=== PATIENT | male | born 1950 | race Caucasian/White ===

== ENCOUNTER → 2022-11-29 | Outpatient (CLI) | payer MEDICARE ==
--- NOTE | 2022-11-29 17:45 | Diagnostic Imaging Report ---
INDICATION: Osteoarthritis. COMPARISON: None. FINDINGS: Three radiographic views of the left knee were obtained and demonstrate advanced osteoarthritic changes. This consists of tricompartmental joint space narrowing with prominent osteophyte formations, greatest involving the medial tibiofemoral and patellar trochlear compartments. There is also mild lateral subluxation of the tibia in respect to the femur. Small suprapatellar joint effusion is noted. Osseous structures are intact. Joint spaces are otherwise maintained. No unexpected foreign bodies are seen. IMPRESSION: 1. Advanced osteoarthritic changes of the left knee. No acute fracture or dislocation. Dictated by: Dictated on workstation # [id number]
== END ==
LOC: RAD FS 13:32
PROVIDERS: ATTEND Nurse Practitioner
DX: M17.0 Bilateral primary osteoarthritis of knee (principal)
CPT/HCPCS: 73562

== ENCOUNTER 2023-08-31 07:29 | Outpatient (CLI) | payer MEDICARE ==
[~2023-08-31] VITALS: Ht 170.2 cm; Wt 70.0 kg
[2023-08-31] MEDS ORDERED: ASPI-999 PO (11:35)
[2023-08-31] MEDS ORDERED: ACET500P24 PO (11:35)
[2023-08-31] MEDS ORDERED: ATOR40TA70 PO (11:35)
[2023-08-31] MEDS ORDERED: LISI5TAB20 PO (11:35)
[2023-08-31] MEDS ORDERED: CELE400C PO (11:35)
[2023-08-31] MEDS ORDERED: GABA300S3 PO (11:35)
[2023-08-31 11:40] VITALS: BP 116/78
[2023-08-31 11:53] LABS: BILIRUBIN,URINE NEGATIVE (NEGATIVE); CLARITY,URINE CLEAR; COLOR,URINE YELLOW; GLUCOSE, URINE (UA) NEGATIVE (NEGATIVE); KETONES,URINE TRACE (NEGATIVE); NITRITE,URINE NEGATIVE (NEGATIVE); PROTEIN,URINE NEGATIVE (NEGATIVE)
[2023-08-31 11:54] LABS: BACTERIA,URINE NEGATIVE /HPF; LEUKOCYTE ESTERASE ,URINE NEGATIVE (NEGATIVE); RBC,URINE RARE /HPF
--- NOTE | 2023-08-31 11:57 | Physical Therapy Pre-Op Eval ---
PT Pre-Surgical Assessment Type of Surgery Type of Surgery: Prior Level of Function Current Living Status: Spouse Locomotion (Upon Admit): Independent Distance: Unlimited PLOF DME: Electric Scooter, Front Wheeled Walker Subjective Subjective Patient rates left knee pain at 3/10 currently. Reports he lives in a home with a basement, but has an elevator to get him down there if needed. Home: Multilevel Current Living Status: Spouse Entry Into Home: Level Entry Steps Into Home: 0 ROM ROM: WFL, except focal deficit Strength Strength: WFL Transfers Transfers (B, C, W/C) (FIM): 6 Gait Gait (FIM): 6 Gait Distance (FIM): 6 Distance: 50' Gait Assistive Device: FWW Right Lower Extremity: Right Full Weight Bearing Left Lower Extremity: Left Full Weight Bearing Treatment Rendered Treatment: Patient instructed in assistive device, supported ambulation. Patient instructed in and given written program of ROM and strengthening exercises to be preformed post-op. Patient instructed in movement precautions where applicable. Patient demonstrates understandings of post-operative therapy protocol including gait pattern and exercise program. Pre-operative instruction completed; await physical therapy orders after surgery. Treatment Goal Met: Yes Assessment Goals Acheived: I Ambulation w/ FWW, Understands P-op Precaut, I Post-op Exercises Charges/GCodes Time In: 1125 Time Out: 1135 Total Billed Treatment Time: 10 Total Billed Treatment Visit, DAXA SOLIS PT Aug 31, 2023 11:56
[2023-08-31 12:57] LABS: BASOPHILS # (AUTO) 0.1 10^3/uL (0.0-0.1); BASOPHILS % (AUTO) 1 % (0-10); EOSINOPHILS # (AUTO) 0.1 10^3/uL (0.0-0.3); EOSINOPHILS % (AUTO) 2 % (0-10); HEMATOCRIT 46 % (40-54); HEMOGLOBIN 14.9 g/dL (13.3-17.7); LYMPHOCYTES # (AUTO) 1.1 10^3/uL (1.0-4.0); LYMPHOCYTES % (AUTO) 18 % (12-44); MEAN CORPUSCULAR HEMOGLOBIN 31 pg (25-34); MEAN CORPUSCULAR HGB CONC 33 g/dL (32-36); MEAN CORPUSCULAR VOLUME 95 fL (80-99); MEAN PLATELET VOLUME 9.8 fL (9.0-12.2); MONOCYTES # (AUTO) 0.6 10^3/uL (0.0-1.0); MONOCYTES % (AUTO) 10 % (0-12); NEUTROPHILS # (AUTO) 4.2 10^3/uL (1.8-7.8); NEUTROPHILS % (AUTO) 69 % (42-75); PLATELET COUNT 281 10^3/uL (130-400)
[2023-08-31 13:14] LABS: ALBUMIN 4.2 GM/DL (3.2-4.5); BILIRUBIN,TOTAL 0.4 MG/DL (0.1-1.0); CALCIUM 8.9 MG/DL (8.5-10.1); CREATININE SERUM 0.81 MG/DL (0.60-1.30); POTASSIUM 4.1 MMOL/L (3.6-5.0); TOTAL PROTEIN 6.4 GM/DL (6.4-8.2)
--- NOTE | 2023-08-31 14:14 | Diagnostic Imaging Report ---
INDICATION: Preoperative evaluation prior to knee surgery. EXAMINATION: Two-view chest, 08/31/2023. FINDINGS: The cardiomediastinal silhouette is unremarkable. The pulmonary vasculature is within normal limits. The lungs and pleural spaces are clear. The apices are incompletely included. IMPRESSION: No evidence of an acute cardiopulmonary process. Dictated by: Dictated on workstation # [id number]
[2023-08-31 14:18] LABS: PROTHROMBIN TIME PATIENT 13.6 SEC (12.2-14.7)
== END 2023-08-31 15:47 ==
LOC: PREOP 07:29
PROVIDERS: ATTEND Orthopaedic Surgery
DX: Z01.818 Encounter for other preprocedural examination (principal); M17.12 Unilateral primary osteoarthritis, left knee
CPT/HCPCS: 36415; 71046; 80053; 81000; 85025; 85610; 86850; 86900; 86901; 87081; 93005

== ENCOUNTER 2023-09-07 05:52 | Inpatient (IN) | payer MEDICARE ==
--- NOTE | 2023-08-30 08:08 | HISTORY AND PHYSICAL ---
DATE OF SERVICE: 09/07/2023 ADMISSION HISTORY AND PHYSICAL This will be for inpatient admission on 09/07/2023 for left total knee arthroplasty. HISTORY OF PRESENT ILLNESS: The patient is a 72-year-old active gentleman with progressively worsening left knee pain. He has undergone treatment with injections for years. He reports pain with activities. He reports injections are no longer helping. Because of this, he elected to proceed with total knee arthroplasty. Radiographs reveal severe tricompartmental osteoarthritis. REVIEW OF SYSTEMS: No chest pain, no shortness of breath, no dysuria. PAST MEDICAL HISTORY: Nephrolithiasis, herniorrhaphy, allergic rhinitis. PAST SURGICAL HISTORY: Herniorrhaphy, kidney stone removal, bilateral knee arthroscopy. FAMILY HISTORY: Noncontributory. PRIMARY CARE PROVIDER: Dr. Calderón. MEDICATIONS: Clopidogrel, lisinopril, aspirin, Lipitor. ALLERGIES: No known drug allergies. SOCIAL HISTORY: The patient smokes 1 pack per day. Denies alcohol use. PHYSICAL EXAMINATION: GENERAL: The patient is well-developed, well-nourished, in no acute distress. HEENT: Normocephalic, atraumatic. Pupils equal, round, reactive. Oropharynx is clear. NECK: Supple. No lymphadenopathy. LUNGS: Clear to auscultation bilaterally. HEART: Regular rate and rhythm. ABDOMEN: Soft, nontender, nondistended. EXTREMITIES: The left knee demonstrates varus alignment. He has marked prominence medially with patellofemoral crepitus and pain with patellar loading. Range of motion 0/3/115. There is no erythema or warmth. IMPRESSION: Severe left knee osteoarthritis, unresponsive to conservative measures. PLAN: Left total knee arthroplasty. The risks, benefits, options, ramifications and recovery were discussed at length with the patient. He understands and wishes to proceed. Job ID: [id number] DocumentID: [id number] Dictated Date: 08/22/2023 12:03:14 [employer] Date: 08/22/2023 15:47:00 Dictated By: REY VARELA MD
[2023-09-07] VITALS (14 sets, daily range): BP systolic 108–168; BP diastolic 62–101
[~2023-09-07] VITALS: Ht 170.2 cm; Wt 70.0 kg
[~2023-09-07 05:52] MED LIST: ACET500P24 PO; ASPI-999 PO; ATOR40TA70 PO; CELE400C PO; GABA300S3 PO; LISI5TAB20 PO
--- OUTSIDE RECORDS SUMMARY | 2023-09-07 05:55 | XMS REPORT | Encounter Summary ---
Author Author [facility] Organization [facility] Address Unknown Phone Unavailable Care Team Providers Care Gate Person Name Role Phone Jamie Calderón MD PCP [phone] Reason for Referral * Consultation (Routine) - Authorized Specialty Diagnoses / Procedures Referred By Contac t Referred To Contact Neurology Diagnoses Transient alteration of awareness Bandar Sagastume MD [address] [place] [address] [facility] [address] [address] Referral ID Status Reason Start Date Expiration Date Visits Requested Visits Authorized [id number] Authorized Specialty Services Required 3 02/11/2024 1 1 Reason for Visit * Reason Comments transient global amnesia Medical researc h on TIA Encounter Details Date Type Department Care Team Description 08/12/2023 11:00 AM CDT Telemedicine [facility] [address] [place] [address] Bandar Sagastume MD [address] [place] [address] Transient alteration of awareness (Primary Dx) Social History Tobacco Use Types Packs/Day Years Used Date Smoking Tobacco: Every Day Pipe Smokeless Tobacco: Never Tobacco Cessation:Ready to Q uit: No; Counseling Given: Not Answered Alcohol Use Standard Drinks/Week Comments Not Currently 0 (1 standard drink = 0.6 oz pur e alcohol) rare PHQ-2 Answer Date Recorded Part 1 Score: 0 09/03/2021 [facility] Transportation Needs Answer Date R ecorded Transportation Needs Not on file In the next 24 hours or afte r discharge, are you in a situation where housing, food, or transportation is a concern, or does the patient demonstrate the inability to care for self that could result in imminent harm No 09/03 [facility] Food Insecurity Answer Date Record ed Food Insecurity Not on file In the next 24 hours or afte r discharge, are you in a situation where housing, food, or transportation is a concern, or does the patient demonstrate the inability to care for self that could result in imminent harm No 09/03 [facility] Housing Answer Date Recorded Housing Insecurity Not on file In the next 24 hours or afte r discharge, are you in a situation where housing, food, or transportation is a concern, or does the patient demonstrate the inability to care for self that could result in imminent harm No 09/03 Sex and Gender Information Value Date Recorded Sex Assigned at Not on file Gender Identity Not on file Sexual Orientation Not on file documented as of this encounter Last Filed Vital Signs Vital Sign Reading Time Taken Comments Blood Pressure 115/74 08/12/2023 11:01 AM CDT Pulse 89 08/12/2023 11:01 AM CDT Temperature 36.7 C (98 F) 08/12/2023 11:01 AM CDT Respiratory Rate 18 08/12/2023 11:01 AM CDT Oxygen Saturation 98% 08/12/2023 11:04 AM CDT Inhaled Oxygen Concentration - - Weight 68.2 kg (150 lb 6.4 oz) 08/12/2023 11:01 AM CDT Height 170.2 cm (5' 7") 08/12/2023 11:01 AM CDT Body Mass Index 23.56 08/12/2023 11:01 AM CDT documented in this encounter Patient Instructions * Patient Instructions* Hernan Magdaleno RN - 08/12/2023 11:00 AM CDT Referral has been placed to the Ep[facility]psy [facility] in [place]. [employer] will call to make an appointment Avoid sleep deprivation, fasting and control pain to mitigate spells Call for follow up once completed with Epilepsy Center Call [facility] at [phone] with any questions or concerns documented in this encounter Progress Notes * Bandar Sagastume MD - 08/12/2023 11:00 AM CDT NEUROLOGY CONSULTATION The patient Jama Downing, located at [facility] was seen, examined, and evaluated via [facility] audio/video equipment. The provider documenting this encounter was Bandar Sagastume MD who performed this service while located at home. Consent for the telemedicine was obtained from the patient? Yes Patient Name: Jama Downing : 1950 PCP: Jamie Calderón MD Date of service: 08/12/2023 CHIEF COMPLAINT HISTORY OF PRESENT ILLNESS follow up of episodes of altered awareness. Jama Downing is a 72 y.o., right-handed male who comes in for neurologic follow-up regarding episodes of altered behavior. Please see my last note of March 25 for details. 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 Please see March 25 note for details of these events. The patient was hospitalized with the most recent episode and had extensive neurologic work-up as outlined, including a baseline EEG which was negative. Plan was to continue with antiplatelet agents and Lipitor and to follow-up as needed. Since I saw him last, he followed up with vascular surgery who noted that his carotid arteries looked good following carotid endarterectomy in 2019, however recommended continuing dual antiplatelet therapy with both aspirin and Plavix. The patient has done this and has been compliant with all his medications. He reports a third episode occurring about 1 month ago of altered awareness. 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 Patient does not remember this at all. When he left the restaurant few minutes later, he came back in wondering who had moved to his truck. As it turns out, he parked his truckin the unusual location, different than where he usually valdes it, and did not remember this at all. He had no difficulty getting to work, negotiating the several turns without problems, had no accompanying symptoms of headache, numbness, tingling, visual changes, dizziness, lightheadedness, weakness, or other neurologic symptoms. No associated chest pain, nausea, shortness of breath. He has had no recurrent episodes since. He was accompanied to clinic by his ACTIVE PROBLEMS: Patient Active Problem List Diagnosis SNOMED CT(R) Carotid stenosis, left LEFT CAROTID ARTERY STENOSIS Hearing loss HEARING LOSS Current every day smoker SMOKES TOBACCO DAILY Acute post-operative pain ACUTE POSTOPERATIVE PAIN Hypotension LOW BLOOD PRESSURE Transient alteration of awareness TRANSIENT ALTERATION OF AWARENESS HISTORIES: I have reviewed the patient's medical history in detail; there are no changes to the history as noted in the electronic medical record. CURRENT MEDICATIONS: acetaminophen (TYLENOL) 325 MG tablet Take 2 tablets (650 mg total) by mouth every 6 (six) hours asneeded. aspirin 81 MG EC tablet Take 1 tablet (81 mg total) by mouth daily. atorvastatin (LIPITOR) 40 MG tablet Take 1 tablet (40 mg total) by mouth nightly. clopidogreL (PLAVIX) 75 mg tablet hydrOXYzine (ATARAX) 25 MG tablet Take 1 tablet (25 mg total) by mouth 3 (three) times a day as needed for itching. lisinopriL (PRINIVIL,ZESTRIL) 5 MG tablet Take 1 tablet (5 mg total) by mouth daily. No current facility-administered medications for this visit. ALLERGIES: No Known Allergies PHYSICAL EXAM: Limited by the constraints of telemedicine. Vitals: 08/12/23 1101 08/12/23 1104 BP: 115/74 BP Location: Right arm Patient position: Sitting Cuff size: Medium Pulse: 89 Resp: 18 Temp: 36.7 C (98 F) TempSrc: Temporal SpO2: 98% Weight: 68.2 kg (150 lb 6.4 oz) Height: 1.702 m (5' 7") Body mass index is 23.56 kg/m. Physical Exam Well-developed well-nourished man in no acute distress. Neurologic Exam He is alert. Affect appropriate. Speech fluent without dysarthria. He is attentive. Gaze is conjugate. No facial asymmetry or weakness. Hearing grossly intact to conversation over the WebCam. Motor exam shows him to move all 4 extremities without apparent asymmetry. His gait was normal withno gross ataxia, shuffling, or festination. No obvious ataxic movements of the limbs. IMPRESSION Mr. Downing is a 72 y.o. right-handed male with now his third recurrent episode in 3 years of briefalteration of behavior. Differential diagnosis would be transient global amnesia, which is not commonly recurrent, versus a partial seizure disorder. PLAN: Discussed in detail with the patient and his . He is agreeable to proceeding further with work-up. He has had negative MRI as well as stroke work-up including MRI of the brain and CT angiogram of the head and neck as documented in previous notes. He is on dual antiplatelet treatment and statin therapy. Baseline EEG was negative, and therefore we will pursue further EEG testing, such as 72-hour ambulatory EEG. He will be referred to the epilepsy center for the consideration. Return for follow-up after he goes to the epilepsy center. Diagnoses and all orders for this visit: Transient alteration of awareness - Amb Referral To Neurology; Future FOLLOW UP: After evaluation at [facility]. This encounter took 40 minutes including face to face, preparation, and documentation time. documented in this encounter Plan of Treatment Scheduled Referrals Name Type Priority Associated Diagnoses Order Schedule Amb Referral To Neurology Outpatient Referral Routine Transient alteration of awareness 1 Occurrences starting 08/12/2023 until 02/11/2024 documented as of this encounter Visit Diagnoses Diagnosis Transient alteration of awareness- Primary documented in this encounter Care Teams Gate Person Relationship Specialty Start Date End Date Jamie Calderón MD PCP - General Family Medicine 04/24/20 documented as of this encounter
--- OUTSIDE RECORDS SUMMARY | 2023-09-07 05:55 | XMS REPORT | Encounter Summary ---
Author Author [facility] Organization [facility] Address Unknown Phone Unavailable Care Team Providers Care Automatic Drilling Machine Operator Name Role Phone Jamie Calderón MD PCP [phone] Reason for Visit * Reason Comments transient global amnesia Pt states he smith d transient amnesia episode 3/4 weeks ago lasting about 3 hours. Was transferred to [facility] from [facility] ER for further evaluation. Pt states all his tests were negative. Denies any pain. States this was his second episode * Consultation (Routine) - Closed Specialty Diagnoses / Procedures Referred By Contac t Referred To Contact Neurology Diagnoses Transient global amnesia Jamie Calderón MD [address] [place] [address] [facility] Neurology Cl [address] [place] [address] Referral ID Status Reason Start Date Expiration Date V isits Requested Visits Authorized [id number] Closed Specialty Services Required 02/16/2023 08/19/2023 1 1 Encounter Details Date Type Department Care Team Description 03/25/2023 9:30 AM CDT Telemedicine [facility] [address] [place] [address] Jamie Calderón MD [address] [place], [place] [id number] Bandar Sagastume MD [address] [facility] [address] [place] [address] Transient global amnesia Social History Tobacco Use Types Packs/Day Years Used Date Smoking Tobacco: Every Day Pipe Smokeless Tobacco: Never Tobacco Cessation:Ready to Q uit: Yes; Counseling Given: Not Answered Alcohol Use Standard Drinks/Week Comments Not Currently 0 (1 standard drink = 0.6 oz pur e alcohol) rare PHQ-2 Answer Date Recorded Part 1 Score: 0 09/03/2021 [facility] Transportation Needs Answer Date R ecorded Transportation Needs Not on file In the next 24 hours or afte r discharge, are you in a situation where housing, food, or transportation is a concern, or does the patient demonstrate the inability to care for self that could result in imminent harm No 09/03 [facility] Food Insecurity Answer Date Record ed Food Insecurity Not on file In the next 24 hours or afte r discharge, are you in a situation where housing, food, or transportation is a concern, or does the patient demonstrate the inability to care for self that could result in imminent harm No 09/03 [facility] Housing Answer Date Recorded Housing Insecurity [...] Sign Reading Time Taken Comments Blood Pressure 120/67 03/25/2023 9:38 AM CDT Pulse 73 03/25/2023 9:38 AM CDT Temperature 36 C (96.8 F) 03/25/2023 9:38 AM CDT Respiratory Rate 20 03/25/2023 9:38 AM CDT Oxygen Saturation 99% 03/25/2023 9:42 AM CDT Inhaled Oxygen Concentration - - Weight 68 kg (150 lb) 03/25/2023 9:38 AM CDT Height 170.2 cm (5' 7") 03/25/2023 9:38 AM CDT Body Mass Index 23.49 03/25/2023 9:38 AM CDT documented in this encounter Patient Instructions * Patient Instructions* Hernan Magdaleno RN - 03/25/2023 9:30 AM CDT Please research transient global amnesia Follow as needed Call with any questions or concerns: [phone] documented in this encounter Progress Notes * Bandar Sagastume MD - 03/25/2023 9:30 AM CDT NEUROLOGY CONSULTATION The patient Jama Downing, located at [facility] was seen, examined, and evaluated via [employer] audio/video equipment. The provider documenting this encounter was Bandar Sagastume MD who performed this service while located at home. Consent for the telemedicine was obtained from the patient? Yes Patient Name: Jama Downing : 1950 PCP: Jamie Calderón MD Date of service: 03/25/2023 CHIEF COMPLAINT transient global amnesia (Pt states he had transient amnesia episode 3/4 weeks ago lasting about 3 hours. Was transferred to [facility] from [facility] ER for further evaluation. Pt states all his tests were negative. Denies any pain. States this was his second episode) HISTORY OF PRESENT ILLNESS new evaluation and treatment of transient global amnesia. Jama Downing is a 72 y.o., right-handed male referred for further evaluation of recurrentepisode of transient global amnesia. Electronic medical record was reviewed as well as records supplied by his PCP, Dr. Calderón. Patient's first episode occurred in 2019. He had an episode where he lost track of about 6 hours of time. He remembers waking up, feeling fine, and other than occasional very sketchy brief memories, remembers nothing more of the ensuing 6 hours. Patient's told him that he kept repeating himself on 6 several occasions asking "where am I, what I doing"? Otherwise he apparently was acting normally, does not remember having any problems with headache, weakness, numbness, tingling, visual changes, chest pain, palpitations, or other neurologic or systemic symptoms. Apparently his speech was not slurred. He went on to work and was able to do his job, although coworker subsequently told him that he was doing the same activity somewhat repetitively. He was able to drive to work withoutproblem, and drive home, and he then spontaneously "came to" with no further memory issues. He hadno idea what transpired the previous 6 hours. He was brought to a local hospital where he was evaluated with neuroimaging and noted to have 70% blockage of his left internal carotid artery. This then led to uncomplicated left carotid endarterectomy. He had no further problems up until several weeks ago. This episode was very similar to the first but lasted about 3 hours. He was feeling fine,got out of the vehicle that he was driving with his on his way to the store, because a fan belt broke. That is all that he remembers up until about 3 hours later when he was in the hospital. His told him that he repeatedly walked back to the car from under the roman stating "do not freakout I am going to be okay". Again he had no focal neurologic symptoms or headache. Extensive neurologic work-up was done at [facility], including MRI of the brain, EEG, CT angiogram of the head and neck, and routine blood work. This was all unremarkable. Plavix was added to his low-dose aspirin as well as Lipitor and he was discharged home. He has not had any recurrent episodes. Patient gives no history of migraine headaches, strokes, TIA, head injuries, or seizures. He states he believes he was a bit dehydrated perhaps with the most recent episode, and he seemed to get better quickly when he was in the emergency room and given IV fluids. He came to this appointment alone. REVIEW OF SYSTEMS: A 12 system review of systems was negative except for where noted in the history of present illnessabove. ACTIVE PROBLEMS: Patient Active Problem List Diagnosis SNOMED CT(R) Carotid stenosis, left LEFT CAROTID ARTERY STENOSIS Hearing loss HEARING LOSS Current every day smoker SMOKES TOBACCO DAILY Acute post-operative pain ACUTE POSTOPERATIVE PAIN Hypotension LOW BLOOD PRESSURE HISTORIES: I have reviewed the patient's medical history in detail; there are no changes to the history as noted in the electronic medical record. CURRENT MEDICATIONS: acetaminophen (TYLENOL) 325 MG tablet Take 2 tablets (650 mg total) by mouth every 6 (six) hours as needed. aspirin 81 MG EC tablet Take 1 tablet (81 mg total) by mouth daily. atorvastatin (LIPITOR) 40 MG tablet Take 40 mg by mouth nightly. clopidogreL (PLAVIX) 75 mg tablet hydrOXYzine (ATARAX) 25 MG tablet Take 25 mg by mouth 3 (three) times a day as needed for itching. lisinopriL (PRINIVIL,ZESTRIL) 5 MG tablet Take 1 tablet (5 mg total) by mouth daily. No current facility-administered medications for this visit. ALLERGIES: No Known Allergies PHYSICAL EXAM: Limited by the constraints of telemedicine. Vitals: 03/25/23 0938 03/25/23 0942 BP: 120/67 BP Location: Right arm Patient position: Sitting Cuff size: Large Pulse: 73 Resp: 20 Temp: 36 C (96.8 F) TempSrc: Temporal SpO2: 99% Weight: 68 kg (150 lb) Height: 1.702 m (5' 7") Body mass index is 23.49 kg/m. Physical Exam Well-developed well-nourished man in no acute distress. Neurologic Exam Is alert. Affect is good. Speech fluent without dysarthria. He is attentive. Follows commands well. No left-right confusion. No naming difficulty. Left pupil may be slightly larger than the right but both appear to be reactive through the WebCam. Gaze is conjugate without nystagmus. No facial asymmetry or weakness. Hearing grossly intact. Shoulder shrug symmetric. Tongue protrudes in the midline and moves well. Motor exam showed no involuntary movements. No drift or fixation. Fine finger movements are intact. He moves all 4 extremities equally well at least 3/5 proximally and distally. Coordination testing showed intact finger-nose, [id number], and rapid alternating movements. He got up from the chair with arms extended easily. Romberg was negative. Gait appeared to be normal. STUDIES REVIEWED: Extensive studies in hospital unremarkable as noted above-- reports reviewed IMPRESSION Mr. Downing is a 72 y.o. right-handed male with 2 episodes of what appears to be transient global amnesia, first in 2019, second last month. Telemedicine neurologic examination is unremarkable as well as neurologic work-up as outlined above. PLAN: Discussed in detail with the patient. Transient global amnesia is not well understood and etiologyis unclear. There is no evidence at this point that he needs dual antiplatelet therapy, and he does report easy bruisability and is quite active, therefore risk of bleeding complications with the addition of Plavix would seem to outweigh any benefits. Recommend he just continue low-dose aspirin. Although not very likely, there is a small possibility that his episodes could be partial seizures. He is not interested in pursuing this further unless he has recurrent episodes. If so, then wouldrecommend most likely prolonged EEG after sleep deprivation or ambulatory EEG. In the meantime, hestates that he is a bit of a workaholic, and will learn to relax a bit more and not work as hard. He will also keep well-hydrated, because he thinks this may have contributed to his episodes. I will see him again as needed in follow-up. Diagnoses and all orders for this visit: Transient global amnesia - Amb Referral To Neurology Other orders - clopidogreL (PLAVIX) 75 mg tablet FOLLOW UP: Return if symptoms worsen or fail to improve. This encounter took 65 minutes including face to face, preparation, and documentation time. This time includes reviewing outside records. documented in this encounter Plan of Treatment Not on file documented as of this encounter Visit Diagnoses Diagnosis Transient global amnesia documented in this encounter Care Teams Automatic Drilling Machine Operator Relationship Specialty Start Date End Date Jamie Calderón MD PCP - General Family Medicine 04/24/20 documented as of this encounter
--- OUTSIDE RECORDS SUMMARY | 2023-09-07 05:55 | XMS REPORT | Encounter Summary ---
Author Author [facility] Organization [facility] Address Unknown Phone Unavailable Care Team Providers Care Silk Examiner Name Role Phone Jamie Calderón MD PCP [phone] Reason for Visit * Reason Comments 1 yr carotid stenosis f/u; knee surgery clearance Encounter Details Date Type Department Care Team Description 08/01/2023 2:10 PM CDT - 08/01/2023 11:59 PM CDT Hospital Encounter [facility] [address], [address] [place] [address] Sharon Lunsford, SMALL LOT OPERATOR [address] [facility] [address] [place], [place] [id number] Carotid stenosis, left (Primary Dx); Current every day smoker Discharge Disposition: Home or Self Care Social History Tobacco Use Types Packs/Day Years Used Date Smoking Tobacco: Every Day Pipe Smokeless Tobacco: Never Tobacco Cessation:Ready to Q uit: Not Asked; Counseling Given: Not Answered Alcohol Use Standard Drinks/Week Comments Not Currently 0 (1 standard drink = 0.6 oz pur e alcohol) rare PHQ-2 Answer Date Recorded Part 1 Score: 0 09/03/2021 [facility] Transportation Needs Answer Date R ecorded Transportation Needs Not on file In the next 24 hours or afte r discharge, are you in a situation where housing, food, or transportation is a concern, or does the patient demonstrate the inability to care for self that could result in imminent harm No 09/03 [facility] Food Insecurity Answer Date Record ed Food Insecurity Not on file In the next 24 hours or afte r discharge, are you in a situation where housing, food, or transportation is a concern, or does the patient demonstrate the inability to care for self that could result in imminent harm No 09/03 [facility] Housing Answer Date Recorded Housing Insecurity [...] Sign Reading Time Taken Comments Blood Pressure 133/87 08/01/2023 2:22 PM CDT Pulse 83 08/01/2023 2:22 PM CDT Temperature 36.6 C (97.9 F) 08/01/2023 2:22 PM C DT Respiratory Rate 16 08/01/2023 2:22 PM CDT Oxygen Saturation 98% 08/01/2023 2:22 PM CDT Inhaled Oxygen Concentration - - Weight 68.9 kg (152 lb) 08/01/2023 2:22 PM CDT Height 170.2 cm (5' 7") 08/01/2023 2:22 PM CDT Body Mass Index 23.81 08/01/2023 2:22 PM CDT documented in this encounter Discharge Instructions * Patient Instructions* Pura Calero RN - 08/01/2023 2:30 PM CDT Sharon Lunsford APRN has reviewed your medical records and performed a thorough physical exam. Your carotid ultrasound looks stable and your numbers remain normal (50% or less). They do not lookmuch different than last year. Please call the Vascular Center at [phone] if you have any questions or concerns. Our Fax number is [phone], for any further paperwork. documented in this encounter Medications at Time of Discharge Medication Sig Dispensed Refills Start Date End Date acetaminophen (TYLENOL) 325 MG tablet Take 2 tablets (650 mg total) by mouth every 6 (six) hours as needed. 0 05/07/2020 aspirin 81 MG EC tablet Take 1 tablet (81 mg total) by mouth daily. 0 atorvastatin (LIPITOR) 40 MG tablet Take 1 tablet (40 mg total) by mouth nightly. 0 09/29/2021 clopidogreL (PLAVIX) 75 mg tablet 0 02/14/2023 hydrOXYzine (ATARAX) 25 MG tablet Take 1 tablet (25 mg total) by mouth 3 (three) times a day as needed for itching. 0 lisinopriL (PRINIVIL,ZESTRIL) 5 MG tablet Take 1 tablet (5 mg total) by mouth daily. 0 documented as of this encounter Progress Notes * Sharon Lunsford, SMALL LOT OPERATOR - 08/01/2023 2:30 PM CDT [facility] Chief complaint(s): 1 yr carotid stenosis f/u; knee surgery clearance HPI: Mr. Downing is a 72 year old male who presents via telephone visit for annual follow up of carotid stenosis with duplex imaging. He was last seen in Vascular clinic on 10/01/2021. He has history of carotid stenosis s/p left CEA by Dr. Chapman with neurosurgery on 05/05/2020. Previous carotid duplex 07/03/2021 showed right ICA PSV 125 cm/sec with ratio of 1.9, left ICA PSV 89 cm/sec with a ICA/CCA ratio of 1.6 and ECA PSV 290 cm/sec. He was doing well at time of last office visit. He had an area of concern, with swelling to the left neck at previous CEA site. He was on ASA and statin. He was not smoking, but he was using nicotine gum to aid with smoking cessation. He had palpable DP pulses bilaterally. Dr. Gonsales recommended ongoing medical management, follow up in one year with repeat imaging. In 2021 he had a carotid duplex that reveals a right distal ICA PSV 103/EDV 44.7 with an ICA/CCA ratio of 1.38 and a left distal ICA PSV 102/EDV 38.4 and an ICA/CCA ratio of 1.59. Since the time of his last visit, he is planning to get a new left knee replacement in [place], [place]. He denies any claudication. He had a carotid duplex done today for clearance and he has a right distal ICA PSV 103/EDV 44.7 with an ICA/CCA ratio of 1.38 and a left a distal ICA PSV 102/EDV 38.4 with an ICA/CCA ratio of 1.59. He remains on aspirin, lipitor and plavix. He denies any shortness of breath or chest pain. He presents today for carotid follow up. Patient Active Problem List Diagnosis SNOMED CT(R) Carotid stenosis, left LEFT CAROTID ARTERY STENOSIS Hearing loss HEARING LOSS Current every day smoker SMOKES TOBACCO DAILY Acute post-operative pain ACUTE POSTOPERATIVE PAIN Hypotension LOW BLOOD PRESSURE Past Medical History: Diagnosis Date Allergic rhinitis Food allergies Carotid artery stenosis HL (hearing loss) bilateral hearing aids Memory loss 02/2020 5-6 hours in February.Ultrasound showed narrowing carotid. Resolved, Urinary calculi Lithotripsy Visual impairment glasses Past Surgical History: Procedure Laterality Date CYSTOSCOPY, WITH URETEROSCOPIC LASER LITHOTRIPSY AND URETERAL CALCULUS EXTRACTION ENDARTERECTOMY, CAROTID, WITH EEG Left 05/05/2020 Procedure: CAROTID ENDARTERECTOMY WITH ELECTROENCEPHALOGRAPHIC MONITORING AND NEUROMONITORING; Surgeon: Adriane Chapman MD; Location: [facility]; Service: Neurosurgery; Laterality: Left; KNEE ARTHROPLASTY Bilateral 2013 ID CYSTO/URETERO/PYELOSCOPY W/LITHOTRIPSY Right 2014 using nephrostomy tube-now removed Final Medications: Current Outpatient Medications Medication Sig Dispense Refill acetaminophen (TYLENOL) 325 MG tablet Take 2 [...] daily. No current facility-administered medications for this encounter. No Known Allergies Family History: Problem Relation Age of Onset Cancer Mother Cancer Father Social History: Social History Tobacco Use Smoking status: Every Day Types: Pipe Smokeless tobacco: Never Substance Use Topics Alcohol use: Not Currently Comment: rare Drug use: Not Currently Review of Systems Constitutional: Negative. Negative for decreased appetite, fever and weight loss. HENT: Negative. Negative for nosebleeds and sore throat. Eyes: Negative. Negative for vision loss in left eye, vision loss in right eye and visual disturbance. Cardiovascular: Negative. Negative for chest pain, claudication, leg swelling, near-syncope and syncope. Respiratory: Negative. Negative for hemoptysis, shortness of breath, sleep disturbances due to breathing and snoring. Endocrine: Negative. Negative for cold intolerance and heat intolerance. Hematologic/Lymphatic: Negative for bleeding problem. Bruises/bleeds easily. Skin: Negative. Negative for color change, poor wound healing, rash, suspicious lesions and unusual hair distribution. Musculoskeletal: Negative. Negative for muscle cramps and muscle weakness. Gastrointestinal: Negative. Negative for abdominal pain and anorexia. Genitourinary: Negative. Negative for decreased libido and pelvic pain. Neurological: Negative. Negative for dizziness, light-headedness, loss of balance, numbness and paresthesias. Psychiatric/Behavioral: Negative. Negative for altered mental status and depression. Allergic/Immunologic: Negative. Negative for HIV exposure and persistent infections. All other systems reviewed and are negative. 08/01/2023 2:22 PM Vitals BP 133/87 BP Location Left arm Pulse 83 Resp 16 Height 5' 7" Weight 152 lb SpO2 98 % BMI: Body mass index is 23.81 kg/m. Physical Exam: Vitals: 08/01/23 1421 08/01/23 1422 BP: 125/85 133/87 Pulse: 72 83 Resp: 16 16 Temp: 36.6 C (97.9 F) 36.6 C (97.9 F) SpO2: 98% 98% Weight: 68.9 kg (152 lb) 68.9 kg (152 lb) Height: 1.702 m (5' 7") 1.702 m (5' 7") General appearance: NAD, Well developed CV: Regular rate and rhythm without murmurs, gallops or rubs Vasc: Left Radial: 2+ Right Radial: 2+ Resp: clear to auscultation, non-labored GI: Soft, +BS, Nontender, Nondistended, No masses Skin: Warm, No jaundice Neuro: Moves all extremities Fpc Follow Up Current Living Status: Home Functional Status: Self Care Current Ambulation: Amb No data recorded Impression and Plan: 1. Carotid stenosis, left 2. Current every day smoker Sharon Bae, saw Jama Downing on 08/01/2023 and have solely contributed to the medical decision making of Jama Downing and recommend the following: Carotid Stenosis - He has done well since his original surgery in [address] Chapman. Bilateral ICA PSV, EDV and ICA/CCA ratio are within normal limits indicating a 0-50% stenosis bilaterally. Hehas an upcoming knee operation which I cleared him for. He remains on Aspirin, plavix and lipitor - if this needs to be held we can do a short course to get him through his knee surgery. From a vascular standpoint he has done well over the past 3 years without any elevated velocities. From a vascular standpoint will verify the length of plavix due to a thrombus on the patch last year. Otherwise anticipate he will be able to see us PRN. ISharon, have reviewed the following pertinent diagnostic testing including: Carotid Duplex. Sharon Bea spent 10 minutes on this encounter reviewing the above diagnostic imaging, 10minutes physical exam and coordination of care and 10 minutes charting the above in the EMR. Treatment goals, progress and next steps, as above, were discussed and mutually agreed upon with the patient/family. documented in this encounter Plan of Treatment Not on file documented as of this encounter Visit Diagnoses Diagnosis Carotid stenosis, left- Primary Occlusion and stenosis of carotid artery without mention of cerebral infarction Current every day smoker documented in this encounter Care Teams Silk Examiner Relationship Specialty Start Date End Date Jamie Calderón MD PCP - General Family Medicine 04/24/20 documented as of this encounter
--- OUTSIDE RECORDS SUMMARY | 2023-09-07 05:55 | XMS REPORT | Encounter Summary ---
Author Author [facility] Organization [facility] Address Unknown Phone Unavailable Care Team Providers Care Brazer Induction Name Role Phone Jamie Calderón MD PCP [phone] Reason for Referral * MRI/CAT/PET Scan (Routine) - Closed Specialty Diagnoses / Procedures Referred By Contac t Referred To Contact Radiology Diagnoses Pneumonia of right middle lobe due to infectious organism Procedures CT Chest w contrast Yohan Castro MD [address] [place] [address] [facility] [address] [place] [address] Referral ID Status Reason Start Date Expiration Date Visits Re quested Visits Authorized [id number] Closed 03/23/2023 03/23/2024 1 1 Encounter Details Date Type Department Care Team Description 03/23/2023 Transcribe Orders [facility] [address] [place] [address] Yohan Castro MD [address] [place] [address] Pneumonia of right middle lobe due to infectious organism (Primary Dx) Social History Tobacco Use Types Packs/Day Years Used Date Smoking Tobacco: Every Day Pipe Smokeless Tobacco: Never Alcohol Use Standard Drinks/Week Comments Not Currently 0 (1 standard drink = 0.6 oz pur e alcohol) rare PHQ-2 Answer Date Recorded Part 1 Score: 0 09/03/2021 [facility] Transportation Needs Answer Date R ecorded Transportation Needs Not on file In the next 24 hours or afte r discharge, are you in a situation where housing, food, or transportation is a concern, or does the patient demonstrate the inability to care for self that could result in imminent harm No 09/03 [facility] Food Insecurity Answer Date Record ed Food Insecurity Not on file In the next 24 hours or afte r discharge, are you in a situation where housing, food, or transportation is a concern, or does the patient demonstrate the inability to care for self that could result in imminent harm No 09/03 [facility] Housing Answer Date Recorded Housing Insecurity Not [...] on file documented as of this encounter Plan of Treatment Not on file documented as of this encounter Procedures Procedure Name Priority Date/Time Associated Diagnosis Comments CT CHEST W CONTRAST Routine 03/24/2023 1:40 PM CDT Pneumonia of right middle lobe due to infectious organism documented in this encounter Results * CT Chest w contrast (03/24/2023 1:40 PM CDT) Anatomical Region Laterality Modality Lung, Chest Computed Tomogra phy 03/24/2023 1:2 5 PM CDT Impressions 03/24/2023 2:47 PM CDT 1. New small amount of right middle lobe consolidation, likely pneumonia. Follow-up noncontrast chest CT could be performed in one to 3 months to ensure resolution. 2. Previous tiny solid nodules are stable, benign appearance. Narrative 03/24/2023 2:47 PM CDT Patient: LAKIA DOWNING Sex#: M #: [id number] [place]#: [id number] Location: [facility] CT Ordering Provider: YOHAN CASTRO Procedure Requested: [id number] CT CHEST W CONTRAST Reason for Exam: eval RML opacity Exam Ordered: 03/23/2023 00 Begin exam date/time: 03/24/2023 1325 Exam Date/Time: 03/24/[address] CHEST W CONTRAST INDICATION: eval RML opacity COMPARISON: 12/06/2022. TECHNIQUE: CT images through the chest after the administration of intravenous contrast. Multiplanar and MIP reformatted images were obtained. All CT scans are performed using dose reduction techniques. FINDINGS: Lungs and Airways: Interval development of small amount of consolidation within the medial right middle lobe (series 2 image 174). Previous tiny solid pulmonary nodules are stable. Retained central airway secretions. Centrilobular emphysema. Pleura: Normal. Heart and Mediastinum: No lymphadenopathy. Normal heart and pericardium. Mild aorta and coronary artery atherosclerotic calcification. Upper Abdomen: No acute findings. Bones and Soft Tissues: Degenerative changes of the spine. Old healed sternal body fracture. Yohan Castro MD IMG CT ORDERABLES documented in this encounter Visit Diagnoses Diagnosis Pneumonia of right middle lobe due to infectious organism- Primary documented in this encounter Care Teams Brazer Induction Relationship Specialty Start Date End Date Jamie Calderón MD PCP - General Family Medicine 04/24/20 documented as of this encounter
--- OUTSIDE RECORDS SUMMARY | 2023-09-07 05:55 | XMS REPORT | Clinical Summary ---
Author Author [facility] Organization [facility] Address Unknown Phone Unavailable Care Team Providers Care Pantry Goods Worker Name Role Phone Jamie Calderón MD PCP [phone] Allergies No known active allergies Medications Medication Sig Dispensed Refills Start Date End Date Status lisinopriL (PRINIVIL,ZESTRIL) 5 MG tablet Take 1 tablet (5 mg total) by mouth daily. 0 Active aspirin 81 MG EC tablet Take 1 tablet (81 mg total) by mouth daily. 0 Active hydrOXYzine (ATARAX) 25 MG tablet Take 1 tablet (25 mg total) by mouth 3 (three) times a day as needed for itching. 0 Active acetaminophen (TYLENOL) 325 MG tablet Take 2 tablets (650 mg total) by mouth every 6 (six) hours as needed. 0 05/07/2020 Active atorvastatin (LIPITOR) 40 MG tablet Take 1 tablet (40 mg total) by mouth nightly. 0 09/29/2021 Active clopidogreL (PLAVIX) 75 mg tablet 0 02/14/2023 Active Active Problems Problem Noted Date Diagnosed Date Transient alteration of awareness 08/12/2023 Hypotension 05/06/2020 Carotid stenosis, left 05/05/2020 Overview: Jul 2020 R ICA 91 R EDV 37 R CCA 101 R ICA/CCA ratio 0.89 L ICA 88 L EDV 38 L CCA 58 L ICA/CCA ratio 1.58 Hearing loss 05/05/2020 Current every day smoker 05/05/2020 Acute post-operative pain 05/05/2020 Encounters Date Type Department Care Team Description 08/12/2023 11:00 AM CDT Telemedicine [facility] [address] [place] [address] Bandar Sagastume MD Transient alteration of awareness (Primary Dx) 08/01/2023 2:10 PM CDT - 08/01/2023 11:59 PM CDT Hospital Encounter [facility] [address], [address] [place] [address] Sharon Lunsford APRN Carotid stenosis, left (Primary Dx); Current every day smoker Discharge Disposition: Home or Self Care 08/01/2023 8:39 AM CDT - 08/01/2023 2:09 PM CDT Hospital Encounter [facility] [address], [address] [place] [address] Sharon Lunsford APRN Carotid stenosis, left Discharge Disposition: Home or Self Care from Last 3 Months Family History Medical History Relation Name Comments Cancer Father Cancer Mother Relation Name Status Comments Father Mother Alive Social History Tobacco Use Types Packs/Day Years Used Date Smoking Tobacco: Every Day Pipe Smokeless Tobacco: Never Tobacco Cessation:Ready to Q uit: No; Counseling Given: Not Answered Alcohol Use Standard Drinks/Week Comments Not Currently 0 (1 standard drink = 0.6 oz pur e alcohol) rare PHQ-2 Answer Date Recorded Part 1 Score: 0 09/03/2021 [facility] Transportation Needs Answer Date R ecorded Transportation Needs Not on file In the next 24 hours or afte r discharge, are you in a situation where housing, food, or transportation is a concern, or does the patient demonstrate the inability to care for self that could result in imminent harm No 09/03 [facility] Food Insecurity Answer Date Record ed Food Insecurity Not on file In the next 24 hours or afte r discharge, are you in a situation where housing, food, or transportation is a concern, or does the patient demonstrate the inability to care for self that could result in imminent harm No 09/03 [facility] Housing Answer Date Recorded Housing Insecurity [...] on file Sexual Orientation Not on file Last Filed Vital Signs Vital Sign Reading [...] Mass Index 23.56 08/12/2023 11:01 AM CDT Plan of Treatment Health Maintenance Due Date Last Done Comments Colonoscopy 1950 Colorectal Cancer Screening 1950 FIT-DNA 1950 Fecal Occult Blood or FIT 1950 Hepatitis C Screen 1950 Sigmoidoscopy 1950 Spirometry # 1950 Td/Tdap# 1950 Tobacco Cessation Counseling # 1950 Zoster Vaccine# (1 of 2) 12/16/2001 Depression Screening PHQ-9 # 12/16/2016 Advance Care Planning Conversation# 10/17/2022 Medicare Annual Wellness 10/17/2022 Social Determinants of Health# 10/17/2022 COVID-19 Vaccine ( season) 2023, 07/08/2021 Influenza Vaccine (#1) 2023 1, 10/24/2019, 08/14/2018 Fall Risk Assessment # 08/12/2024 08/12/2023, 2019 AAA Completed 07/30/2014 Pneumococcal Vaccine: 65+ Years Completed 0, 08/14/2018 Medical Devices Implanted Type Area Chute Worker Device Identifier Shelf Expiration Date Model / Serial / Lot Implant Graft Hemashield Dbl Velour Patch 0.8cm X 7.6cm [id number] - [id number] Implanted:Qty: 1 on 05/05/2020 by Adriane Chapman MD at [facility] Non-Tissue Implant Left: Neck [employer] 11/16/2024 [id number] / [id number] Explanted Type Area Chute Worker Device Identifier Shelf Expiration Date Model / Serial / Lot Implant 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 17-001-18 - [id number] Explanted:Qty : 1 on 05/05/2020 by Adriane Chapman MD at [facility] Non-Tissue Implant Left: Brain ERMELINDA ZAMARRIPA 17-001-18 / / Procedures Procedure Name Priority Date/Time Associated Diagnosis Comments US CAROTID DUPLEX BILAT Routine 08/01/2023 9:16 AM CDT Carotid stenosis, left from Last 3 Months Results * US Carotid Duplex bilat (08/01/2023 9:16 AM CDT) Left Carotid Bulb Psv 86.40 cm/s MCKESSON Left Carotid Bulb Edv 31.70 cm/s MCKESSON SLHS VASC LEFT ICA/CCA DENOMINATOR 64.10 cm/s MCKESSON Left Cca Dist Sys 64.10 cm/s MCKESSON Left Cca Dist Dodson 26.30 cm/s MCKESSON Left Cca Mid Sys 83.20 cm/s MCKESSON Left Cca Mid Dodson 35.40 cm/s MCK[facility]ON Left Cca Prox Sys 85.70 cm/s MCKESSON Left Cca Prox Dodson 34.20 cm/s MCKESSON Left Ica Dist Sys 102.00 cm/s MCKESSON Left Ica Dist Dodson 38.40 cm/s MCKESSON Left Ica Mid Sys 96.60 cm/s MCKESSON Left Ica Mid Dodson 43.40 cm/s MCKESSON Left Ica Prox Sys 82.30 cm/s MCKESSON Left Ica Prox Dodson 31.30 cm/s MCKESSON SLHS VASC LEFT ICA/CCA NUMERATOR 102.00 cm/s MCKESSON Left ECA sys 198.00 cm/s MCKESSON Left ECA EDV 54.90 cm/s MCKESSON Left Upper Art Prox Subclavian Sys Max 172.00 cm/s MCKESSON Left Vertebral Sys 59.30 cm/s MCKESSON Left Vertebral Edv 21.10 cm/s MCKESSON Right Carotid Bulb Psv 63.90 cm/s MCKESSON Right Carotid Bulb Edv 25.90 cm/s MCKESSON SLHS VASC RIGHT ICA/CCA DENOMINATOR 74.70 cm/s MCKESSON Right Cca Dist Sys 74.70 cm/s MCKESSON Right Cca Dist Dodson 20.10 cm/s MCKESSON Right Cca Mid Sys 72.70 cm/s MCKESSON Right Cca Mid Dodson 19.70 cm/s MCKESSON Right Cca Prox Sys 90.70 cm/s MCKESSON Right Cca Prox Dodson 24.20 cm/s MCKESSON Right Ica Dist Sys 103.00 cm/s MCKESSON Right Ica Dist Dodson 44.70 cm/s MCKESSON Right Ica Mid Sys 77.70 cm/s MCKESSON Right Ica Mid Dodson 32.90 cm/s MCKESSON Right Ica Prox Sys 69.40 cm/s MCKESSON Right Ica Prox Dodson 28.50 cm/s MCKESSON SLHS VASC RIGHT ICA/CCA NUMERATOR 103.00 cm/s MCKESSON Right Eca Sys 95.70 cm/s MCKESSON Right Eca Edv 25.50 cm/s MCKESSON Right Upper Art Prox Subclavian Sys Max 116.00 cm/s MCKESSON Right Vertebral Sys 52.10 cm/s MCKESSON Right Vertebral Edv 20.80 cm/s MCKESSON Right Ica/Cca Ratio 1.38 MCKESSON Left Ica/Cca Ratio 1.59 KESSON Anatomical Region Laterality Modality Neck Ultrasound Narrative 08/01/2023 10:18 AM CDT Table formatting from the original result was not included. No evidence of hemodynamically significant stenosis in the right carotid artery. Normal antegrade flow in the right vertebral artery. No evidence of hemodynamically significant stenosis in the left internal carotid artery. Normal antegrade flow in the left vertebral artery. Diagnostic Vascular Criteria Carotid - Internal Carotid Artery Interpretation Diameter Reduction PSV EDV Ratio Flow Character Normal < 125 cm/s - < 2 No plaque present. <50% < 125 cm/s - < 2 Plaque present. Absent to mild spectral broadening. 50-69% 125-230 cm/s < 135 cm/s 2 - 4 Plaque present. Variable spectral broadening. 70-79% > 230 cm/s < 135 cm/s > 4 Plaque present. Marked spectral broadening 80-99% > 230 cm/s >135 cm/s > 4 Plaque present. Marked spectral broadening - - - No flow signal. Occluded Carotid Stent Diameter Reduction PSV Flow Character Patent, no restenosis < 150 cm/s Laminar flow. May see plaque between outside of stent and vessel wall. Patent, 50-69% restenosis 150 - 300 cm/s Turbulent flow. Intimal hyperplasia/plaque visualized within stent in addition to plaque outside of stent. Near occlusion, > 70% restenosis > 300 cm/s Marked turbulence and spectral broadening present. Post stenotic waveforms should be present distally. Significant intimal hyperplasia/plaque visualized within the stent. Occluded - Absent flow signal Reading Site: Home, Due to COVID-19 Right Carotid The right proximal common carotid artery: Demonstrates no significant stenosis and no significant plaque. The right mid common carotid artery: Demonstrates no significant stenosis and no significant plaque. The right distal common carotid artery: Demonstrates no significant stenosis and with no significant plaque. The right carotid bulb: Has mild calcific plaque. The right proximal internal carotid artery: Demonstrates no significant stenosis and no significant plaque. The right mid internal carotid artery: Demonstrates no significant stenosis and no significant plaque. The right distal internal carotid artery: Demonstrates no significant stenosis and no significant plaque. The right external carotid artery: Demonstrates no significant stenosis and no significant plaque. The right vertebral artery: No significant plaque and has antegrade flow. The right subclavian artery: Demonstrates no significant stenosis and no significant plaque. Left Carotid The left proximal common carotid artery: Demonstrates no significant stenosis and no significant plaque. The left mid common carotid artery: Demonstrates no significant stenosis and no significant plaque. The left distal common carotid artery: Demonstrates no significant stenosis and no significant plaque. The left carotid bulb: Has moderate homogeneous plaque . The left proximal internal carotid artery: Demonstrates no significant stenosis and has mild homogeneous plaque. The left mid internal carotid artery: Demonstrates no significant stenosis and no significant plaque. The left distal internal carotid artery: Demonstrates no significant stenosis and no significant plaque. The left external carotid artery: Demonstrates stenosis and has moderate heterogeneous plaque. The left vertebral artery: No significant plaque and has antegrade flow. The left proximal subclavian artery: Demonstrates no significant stenosis and no significant plaque. Rubens Gonsales MD CV VASCULAR ORDERABL ES from Last 3 Months Advance Directives For more information, please contact: [phone] Latest Code Status on File Code Status Date Activated Date Inactivated Comments Full Code 05/06/2020 6:54 PM 05/07/2020 1:34 PM Code Status History Code Status Date Activated Date Inactivated Comments Full Code 05/05/2020 1:27 PM 05/06/2020 6:51 PM Care Teams Pantry Goods Worker Relationship Specialty Start Date End Date Jamie Calderón MD PCP - General Family Medicine 04/24/20
--- OUTSIDE RECORDS SUMMARY | 2023-09-07 05:58 | XMS REPORT ---
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 068880801 Problem Osteoarthriti s, knee M17.9 confirmed 551212960 Problem Left carotid artery stenosis I65.22 confirmed 2415309766 40923 Problem Cerebral vascular disease I67.9 confirmed 14559495 Problem Hx of adenomatous colonic polyps Z86.010 confirmed 009020691 Problem Sinusitis J32.9 confirmed [id number] ALLERGIES No Known Allergies ENCOUNTERS from 1950 to 2023-07-28 Encounter Location Date Provider Diagnosis [facility] [address] [facility] [id number] [place] [address] Jul, JESSA SMITH IMMUNIZATIONS Vaccine Route Administration Date Status PRIVATE FLULAVAL QUAD 0.5ML (6 MO AND UP) 2020 IM Intramuscular Aug 03, 2021 Administered 2nd Dose PFIZER HRSA, COVID- 19, 0.3 mL IM Intramuscular Aug 03, 2021 Administered 1st Dose PFIZER HRSA, COVID- 19, 0.3 mL IM Intramuscular Jul 08, 2021 Administered PRIVATE FLULAVAL QUAD 0.5ML (6 MO AND UP) 2018 IM Intramuscular Oct 24, 2019 Administered PRIVATE FLULAVAL QUAD 0.5ML (6 MO AND UP) 2018 IM Intramuscular Aug 14, 2018 Administered PRIVATE TDAP (BOOSTRIX) IM Intramuscular Nov 23, 2022 Administered PRIVATE PCV 13 (PREVNAR) IM Intramuscular Aug 14, 2018 Administered PRIVATE PPSV23 (PNEUMOVAX) IM Intramuscular Oct 24 20 Administered SOCIAL HISTORY Sex Assigned At : Social History Observation Description Sex Assigned At Unknown Alcohol Screen (Audit-C) Question Answer Notes Did you have a drink containing alcohol in the p ast year? No Points 0 Interpretation Negative PHQ2 Question Answer Notes In the last 2 weeks, how oft en have you had little interest or pleasure in doing things? Not at all In the last 2 weeks, how oft en have you been feeling down, depressed, or hopeless? Not at all Total PHQ2 Score 0 REASON FOR REFERRAL No Information MEDICATIONS Medication SIG (Take, Route, Frequency, Duration) Notes Start Date End Date Status Atorvastatin Calcium 40 MG TAKE 1 TABLET BY MOUTH DAILY AT BEDTIME Orally Once a day for 90 days Active hydrOXYzine HCl 25 MG TAKE 1 TABLET BY M OUTH EVERY 8 HOURS NEEDED for 30 Active Plavix 75 MG 1 tablet Orally Once a day for 90 days Active Aspirin 81 81 mg 1 tablet Orally Once a day for 90 days Active Lisinopril 5 MG TAKE 1 TABLET BY ALFONSO TH DAILY Orally Once a day for 90 days Active REASON FOR VISIT referral MEDICAL (GENERAL) HISTORY Type Description Date Medical History Left carotid artery stenosis Medical History Rosacea Medical History Transient global amnesia Medical History Cerebral vascular disease Medical History Tobacco use disorder Medical History Hx of adenomatous polyp of colon Surgical History bilateral arthoscopic knee Surgical History hernia repair 2015 Surgical History kidney stones Surgical History Left CEA 2019 Hospitalization History surgeries only MENTAL STATUS No Information PLAN OF TREATMENT Medication Medication Name Sig Start Date Stop Date Plavix 75 MG 1 tablet Orally Once a day for 90 days Atorvastatin Calcium 40 MG TAKE 1 TABLET BY MOUTH DAILY AT BEDTIME Orally Once a day for 90 days Lisinopril 5 MG TAKE 1 TABLET BY ALFONSO TH DAILY Orally Once a day for 90 days Insurance Providers Payer Name Payer Address Payer Phone Insured Name Patient Relationship to Insured Coverage Start Date Coverage End Date Subscriber Number Group Number WPS [facility] PART A [facility] [address] [facility] [phone] Neel Downing Self - patient is the insured 2016 [id number]
--- OUTSIDE RECORDS SUMMARY | 2023-09-07 05:58 | XMS REPORT ---
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 553349079 Problem Osteoarthriti s, knee M17.9 confirmed 231740225 Problem Left carotid artery stenosis I65.22 confirmed 1348779604 40032 Problem Cerebral vascular disease I67.9 confirmed 01744762 Problem Hx of adenomatous colonic polyps Z86.010 confirmed 486730198 Problem Sinusitis J32.9 confirmed [id number] ALLERGIES No Known Allergies ENCOUNTERS from 1950 to 2023-07-25 Encounter Location Date Provider Diagnosis [facility] [address] [facility] [id number] [place] [address] Jul, JESSA SMITH Encounter for immunization Z23 IMMUNIZATIONS Vaccine Route Administration Date Status PRIVATE [...] for 90 days Active REASON FOR VISIT Flu shot MEDICAL (GENERAL) HISTORY Type Description Date Medical [...] History surgeries only MENTAL STATUS No Information ASSESSMENTS Encounter Date Diagnosis Assessment Notes Treatment Notes Treatment Clinical Notes Jul, Encounter for immunization (ICD-10 - Z23) PLAN OF TREATMENT Medication Medication Name Sig Start Date Stop Date Plavix 75 MG 1 tablet Orally Once a day for 90 days Atorvastatin Calcium 40 MG TAKE 1 TABLET BY MOUTH DAILY AT BEDTIME Orally Once a day for 90 days Lisinopril 5 MG TAKE 1 TABLET BY ALFONSO TH DAILY Orally Once a day for 90 days Next Appt Details prn Reason: Insurance Providers Payer Name Payer Address Payer Phone Insured Name Patient Relationship to Insured Coverage Start Date Coverage End Date Subscriber Number Group Number [facility]PS [facility] PART A [facility] [address] [facility] [phone] Neel Downing Self - patient is the insured 2016 [id number]
--- OUTSIDE RECORDS SUMMARY | 2023-09-07 05:58 | XMS REPORT ---
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 832843932 Problem Osteoarthriti s, knee M17.9 confirmed 953509535 Problem Left carotid artery stenosis I65.22 confirmed 9361086216 58785 Problem Cerebral vascular disease I67.9 confirmed 63767356 Problem Hx of adenomatous colonic polyps Z86.010 confirmed 868860553 Problem Sinusitis J32.9 confirmed [id number] ALLERGIES No Known Allergies ENCOUNTERS from 1950 to 2023-07-27 Encounter Location Date Provider [facility] [address] [facility] [id number] [place] [address] Jul, LAURA DIEGO Encounter for immunization Z23 IMMUNIZATIONS Vaccine Route Administration Date Status PRIVATE TDAP (BOOSTRIX) IM Intramuscular Nov 23, 2022 Administered PRIVATE PPSV23 (PNEUMOVAX) IM Intramuscular Oct 24 Administered PRIVATE PCV 13 (PREVNAR) IM Intramuscular Aug 14, 2018 Administered PRIVATE FLULAVAL QUAD 0.5ML (6 MO AND UP) 2018 IM Intramuscular Aug 14, 2018 Administered PRIVATE FLULAVAL QUAD 0.5ML (6 MO AND UP) 2018 IM Intramuscular Oct 24, 2019 Administered 1st Dose PFIZER HRSA, COVID- 19, 0.3 mL IM Intramuscular Jul 08, 2021 Administered PRIVATE FLULAVAL QUAD 0.5ML (6 MO AND UP) 2020 IM Intramuscular Aug 03, 2021 Administered 2nd Dose PFIZER HRSA, COVID- 19, 0.3 mL IM Intramuscular Aug 03, 2021 Administered SOCIAL HISTORY Sex Assigned At : [...] for 90 days Active REASON FOR VISIT COVID-19 Vaccine Dose 2 MEDICAL (GENERAL) HISTORY Type Description Date Medical [...] End Date Subscriber Number Group Number WPS [facility] PART A [facility] [address] [facility] [id number] [phone] Neel Downing Self - patient is the insured 2016 [id number]
[2023-09-07] MEDS ORDERED: LACTATED RINGERS 1,000 ML 1,000 ML IV PRN (06:45)
[2023-09-07] MEDS ORDERED: CEFUROXIME INJECTION 1,500 MG in NS (IVPB) 50 ML 50 ML IV ONE (07:00)
[2023-09-07] MEDS ORDERED: SEVOFLURANE (ULTANE) 15 ML INHAL SOLN ONE ×2 (07:03→08:53)
[2023-09-07] MEDS ORDERED: fentaNYL INJECTION 100 MCG/2 ML VIAL ONE ×2 (07:03→09:22)
[2023-09-07] MEDS ORDERED: proPOfol INJECTION 200 MG/20 ML VIAL IV ONE (07:03)
[2023-09-07] MEDS ORDERED: ONDANSETRON INJECTION 4 MG/2 ML (SDV) ONE (07:03)
[2023-09-07] MEDS ORDERED: LIDOCAINE PF 2% 5 ML VIAL ONE (07:03)
[2023-09-07] MEDS ORDERED: MIDAZOLAM INJ 2 MG/2 ML VIAL ONE (07:03)
[2023-09-07] MEDS ORDERED: dexAMETHasone INJ 10 MG/ML 1 ML VIAL ONE (07:05)
[2023-09-07] MEDS ORDERED: diphenhydrAMINE INJ 50 MG/ML VIAL IVP PRN (07:15)
[2023-09-07] MEDS ORDERED: TEMAZEPAM 15 MG (RESTORIL) CAP PO PRN (07:15)
[2023-09-07] MEDS ORDERED: ONDANSETRON INJECTION 4 MG/2 ML (SDV) IV PRN (07:15)
[2023-09-07] MEDS ORDERED: INTRA-ARTICULAR IU ONE ×5 (07:30)
--- NOTE | 2023-09-07 07:31 | Progress Note-Pre Operative ---
Pre-Operative Progress Note Date of Available H&P: Aug 30, 2023 Date H&P Reviewed: Sep 07, 2023 Time H&P Reviewed: 07:11 Changes from last HP none Pre-Operative Diagnosis: left knee primary osteoarthritis REY VARELA MD Sep 07, 2023 07:31
--- NOTE | 2023-09-07 07:32 | Progress Note-Post Operative ---
Post-Operative Progess Note Surgeon (s)/Solid State Tester (s) Surgeon REY VARELA MD Solid State Tester: Cristhian Reynolds Pre-Operative Diagnosis left knee primary osteoarthritis Post-Operative Diagnosis left knee primary osteoarthritis Procedure & Operative Findings Date of Procedure 09/07/23 Procedure Performed/Findings left total knee arthroplasty Anesthesia Type GETA Estimated Blood Loss Estimated blood loss (mL): minimal Specimens/Packing Specimens Removed none Packing: none REY VARELA MD Sep 07, 2023 07:32
--- NOTE | 2023-09-07 07:34 | D/C HH Face to Face Order ---
D/C Face to Face Orders Reconcile Patient Problems Problems Reviewed?: Yes Instructions for Patient Via [employer], Patient Instructions/FollowUp: three weeks Physician to follow Patient: three weeks Discharge Diet for Home: Regular Diet Patient Data-Allergies,Ht & Wt Patient Allergies: Coded Allergies: No Known Drug Allergies (Unverified , 09/07/23) Home Health Need/Face to Face Date of Face to Face: Sep 07, 2023 Clinical Findings: Muscle weakness, Pain with ambulation I have seen Pt [id number]: Yes Discharged To: Home Diagnosis/Conditions: left total knee arthroplasty Patient is Homebound due to: Cory fall risk due to instabilty, Muscle weakness, Pain w/ambulation Homebound Status Due to the above stated illness, injury or surgical procedure (medical condition or diagnosis) and associated clinical findings, the patient is homebound because of his/her inability to leave home except with aid of a supportive device and/or person AND leaving the home requires a considerable and taxing effort or is medically contraindicated. Pt req the following assistanc: Walker Home Health Nursing Orders Home Health Services Order: Physical Therapy-Evaluate & Treat DC left knee theresa and apply steri strips 09/21/23 Home Health Infusion Therapy Line Start Date: Sep 07, 2023 Therapy Orders Therapy Orders: Physical Therapy, PT to assess for OT Therapy Specific Orders: Eval assistive deivces, Teach enviro modifications/safety, Gait training, Increase strength/endurance, Provider maintenance therapy, Restore ROM Certify Stmt I certify that this patient is under my care and that I, a nurse practitioner or a physician; a medical assistant float working with me, had a face to face encounter that - meets the physician face to face encounter requirements with this patient as dated. REY VARELA MD Sep 07, 2023 07:34
[2023-09-07] MEDS ORDERED: TRANEXAMIC ACID 100 MG/ML 10 ML INJECTION ONE (07:48)
[2023-09-07] MEDS ORDERED: CELECOXIB 400 MG CAPSULE PO SCH (09:00)
[2023-09-07] MEDS ORDERED: HYDROmorphone INJECTION 2 MG/ML VIAL ONE (09:22)
[2023-09-07] MEDS ORDERED: ONDANSETRON INJECTION 4 MG/2 ML (SDV) IVP PRN (09:30)
[2023-09-07] MEDS ORDERED: HYDROmorphone INJECTION 2 MG/ML VIAL IV ONE (09:30)
[2023-09-07] MEDS ORDERED: PROMETHAZINE INJ 25 MG/ML VIAL IVP ONE (09:30)
[2023-09-07] MEDS ORDERED: fentaNYL INJECTION 100 MCG/2 ML VIAL IVP ONE (09:30)
[2023-09-07] MEDS ORDERED: MEPERIDINE INJ 50 MG/ML VIAL IVP ONE (09:30)
[2023-09-07] MEDS ORDERED: morphine INJ 10 MG/ML 1ML (SYR OR VIAL) IVP ONE (09:30)
--- NOTE | 2023-09-07 09:45 | Diagnostic Imaging Report ---
EXAMINATION: Left knee 1 or 2 views HISTORY: Postop COMPARISON: 11/29/2022 FINDINGS: There are postsurgical changes of left total knee arthroplasty. There is soft tissue gas and swelling associated with the left knee. Alignment is near-anatomic. No fracture. IMPRESSION: 1. Left total knee arthroplasty in near-anatomic alignment. Dictated by: Dictated on workstation # [id number]
--- NOTE | 2023-09-07 10:51 | Progress Note ---
Standard Progress Note Progress Notes/Assess & Plan Date Seen by a Provider: Sep 07, 2023 Time Seen by a Provider: 10:50 Progress/Assessment & Plan no complaints rdiographs--HW well positioned without fracture LLE--intact DF and PF of toes and ankle 2 plus DP pulse with brisk cap refill sensation intact to light touch throughout s/p LTKA mobilize as able REY VARELA MD Sep 07, 2023 10:51
[2023-09-07] MEDS ORDERED: FLU HIGH DOSE (65+ YOA) 240 MCG/0.7 ML 2023-24 (FLUZONE) IM ONE (11:15)
[2023-09-07] MEDS: NS IV 1000 ML 1,000 ML IV SCH (11:37)
[2023-09-07] MEDS: oxyCODONE/ACETAMINOPHEN 5/325MG TABLET PO PRN ×2 (12:23→17:32)
--- NOTE | 2023-09-07 14:01 | Consultation - Hospitalist ---
HPI History of Present Illness: HPI/Chief Complaint Jama Downing is a 72 year old male with PMH HTN, HLD, osteoarthritis, who was admitted for scheduled left total knee arthroplasty. The hospitalist service has been consulted to assist with his care. He was seen post-operatively. He is having a bit of pain. He is able to bend his knee. He has no other complaints. Source: patient Exam Limitations: no limitations Date Seen 09/07/23 Attending Physician Jamie Calderón MD PCP Admitting Physician: Edgardo Mack MD Attending Physician: Edgardo Mack MD Referring Physician Date of Admission Sep 07, 2023 at 05:52 Home Medications & Allergies Home Medications Reviewed patient Home Medication Reconciliation performed by pharmacy medication reconciliations prosthetics technician and/or nursing. Patients Allergies have been reviewed. Allergies Allergies Coded Allergies No Known Drug Allergies (Yqmdtvlryl79/22/23) Past Rdraqpc-Hwpnmw-Qsoodd Hx Patient Social History Tobacco Use?: Yes Tobacco type used: Pipe Smoking Status: Current Everyday Smoker Smokeless Tobacco Frequency: Never a User Use of E-Cig and/or Vaping dev: No Substance use?: No Substance type: Caffeine Substance frequency: Daily Alcohol Use?: Yes Alcohol Frequency: Once in a while Pt feels they are or have been: No Immunizations Up To Date Tetanus Booster (TDap): Unknown Hepatitis A: No Hepatitis B: No Seasonal Allergies Seasonal Allergies: No Current Status Advance Directives: No Communicates: Verbally Primary Language: Spanish Preferred Spoken Language: Spanish Is interpretation needed?: No Sensory deficits: Vision impairment, Hearing impairment Implanted or Applied Medical D: None Past Medical History Surgeries: Orthopedic Currently Using CPAP: No Currently Using BIPAP: No High Cholesterol, Hypertension Kidney Stones Hearing Impairment: Hard of Hearing, Bilateral Hearing Aide Blood Disorders: No Family Medical History No Pertinent Family Hx Review of Systems Constitutional: no symptoms reported Respiratory: no symptoms reported Cardiovascular: no symptoms reported Gastrointestinal: no symptoms reported Physical Exam Physical Exam Vital Signs Vital Signs - First Documented Capillary Refill : Less Than 3 Seconds Height, Weight, BMI Height: '" Weight: lbs. oz. kg; 24.16 BMI Method: General Appearance: No Apparent Distress, WD/WN HEENT: PERRL/EOMI, Pharynx Normal Neck: Normal Inspection Respiratory: Lungs Clear, No Respiratory Distress Cardiovascular: Regular Rate, Rhythm, No Murmur Gastrointestinal: Normal Bowel Sounds, Soft Extremity: Normal Inspection, No Pedal Edema, Other (left knee wrapped) Neurologic/Psychiatric: Alert, Normal Mood/Affect Results Results/Procedures Labs Patient resulted labs reviewed. Imaging: Reviewed Imaging Report Assessment/Plan Assessment and Plan Assess & Plan/Chief Complaint Osteoarthritis s/p TKA Ortho primary s/p left TKA 09/07 Pain regimen Bowel regimen Incentive spirometry PT/OT HTN HLD Continue home meds as able DVT prophylaxis: Lovenox Diagnosis/Problems Diagnosis/Problems (1) Osteoarthritis of left knee Status: Acute (2) S/P total knee arthroplasty Status: Acute Qualifiers: Laterality: left Qualified Codes: Z96.652 - Presence of left artificial knee joint (3) HTN (hypertension) Status: Chronic (4) HLD (hyperlipidemia) Status: Chronic JOAO VILLELA MD Sep 07, 2023 14:01
--- NOTE | 2023-09-07 14:41 | Physical Therapy Evaluation ---
PT Evaluation-General Medical Diagnosis Admission Date Sep 07, 2023 at 05:52 Medical Diagnosis: LTKA Onset Date: Sep 07, 2023 Therapy Diagnosis Therapy Diagnosis: Gait deficit, strength deficit Precautions Precautions/Isolations: Fall Prevention Weight Bear Status Right Lower Extremity: Right Full Weight Bearing Left Lower Extremity: Left Weight Bearing/Tolerated Referral Physician: Dr. Mack Reason for Referral: Evaluation/Treatment Medical History Reviewed History: Yes Social History Home: Single Level Current Living Status: Spouse Entry Into Home: Elevator Prior Prior Level of Function SCALE: Activities may be completed with or without assistive devices. 1-Xtdtianmvc-jgenjzm completes the activity by him/herself with no assistance from a helper. 5-Set-up or Clean-up Assistance-helper sets up or cleans up; patient completes activity. [place] assists only prior to or following the activity. 4-Supervision or Touching Assistance-helper provides verbal cues and/or touching/steadying and/or contact guard assistance as patient completes activity. Assistance may be provided throughout the activity or intermittently. 3-Partial/Moderate Assistance-helper does LESS THAN HALF the effort. [place] lifts, holds or supports trunk or limbs, but provides less than half the effort. 2-Substantial/Maximal Assistance-helper does MORE THAN HALF the effort. [place] lifts or holds trunk or limbs and provides more than half the effort. 6-Hrbkvnfwz-cnjzoe does ALL the effort. Patient does none of the effort to complete the activity. Or, the assistance of 2 or more helpers is required for the patient to complete the activity. If activity was not attempted, code reason: 7-Patient Refused. 9-Not Applicable-not attempted and the patient did not perform the activity before the current illness, exacerbation or injury. 10-Not Attempted due to Environmental Limitations-(lack of equipment, weather restraints, etc.). 88-Not Attempted due to Medical Conditions or Safety Concerns. Bed Mobility: 6 Transfers (B,C,W/C): 6 Gait: 6 Stairs: 6 Indoor Mobility (Ambulation): Independent Stairs: Independent PT Evaluation-Current Subjective Patient lying supine in bed upon PT arrival, agreeable to treatment. Patient rates pain at 6/10 currently in left knee. Objective Patient Orientation: Person, Place, Time, Situation Attachments: Oxygen, Polar Pack, IV ROM/Strength ROM Lower Extremities Left knee flexion 95 degrees, extension 10 degrees from neutral. All other BLEs WFLs all planes Strength Lower Extremities Left knee flexion and extension 3-/5. All other planes 5/5 Sensory Vision: Functional Hearing: Functional Sensation Right Lower Extremit: Intact Sensation Left Lower Extremity: Intact Transfers Roll Left to Right (QC): 4 Sit to Lying (QC): 4 Lying to Sitting/Side of Bed(Q: 4 Sit to Stand (QC): 4 Chair/Uyq-um-Wmwcv Xfer(QC): 4 Gait Does the Patient Walk?: Yes Mode of Locomotion: Walk Anticipated Mode of Locomotion: Walk Walk 10 feet (QC): 4 Walk 50 ft with 2 Turns(QC): 4 Distance: 50' Gait Assistive Device: FWW Balance Sitting Static: Normal Sitting Dynamic: Normal Standing Static: Fair Standing Dynamic: Fair Assessment/Needs Patient performs all bed mobility and transfers with SBA/CGA. Patient ambulates 50 feet with FWW, with CGA and verbal cues for safety, progression, use of FWW. Patient in chair post treatment with all needs met, nursing notified, call light in hand. Rehab Potential: Good PT Snf Goals Channel Account Manager Goals PT Snf Goals Time Frame: Sep 15, 2023 Roll Left & Right (QC): 6 Sit to Lying (QC): 6 Lying-Sitting on Side/Bed(QC): 6 Sit to Stand (QC): 6 Chair/Hyu-de-Homyu Xfer(QC): 6 Toilet Transfer (QC): 6 Does the Patient Walk: Yes Walk 10 feet (QC): 6 Walk 50ft with 2 Turns (QC): 6 Walk 150 ft (QC): 6 1 Step (curb) (QC): 4 PT Plan Problem List Problem List: Activity Tolerance, Functional Strength, Safety, Balance, Gait, Transfer, Bed Mobility, ROM Treatment/Plan Treatment Plan: Continue Plan of Care Treatment Plan: Bed Mobility, Education, Functional Activity Sera, Functional Strength, Group Therapy, Gait, Safety, Therapeutic Exercise, Transfers Treatment Duration: Oct 15, 2023 Frequency: 11 times per week Estimated Hrs Per Day: .25 hour per day Patient and/or Family Agrees t: Yes Safety Risks/Education Patient Education: Gait Training, Transfer Techniques Teaching Recipient: Patient Teaching Methods: Demonstration, Discussion Response to Teaching: Verbalize Understanding, Return Demonstration Time Time In: 1338 Time Out: 1355 DATE: Sep 07, 2023 Total Billed Treatment Time: 17 Total Billed Treatment Visit, DAXA LARIOS PT Sep 07, 2023 14:41
[2023-09-07] MEDS ORDERED: CEFUROXIME INJECTION 750 MG in NS (IVPB) 50 ML 50 ML IV SCH (15:00)
--- NOTE | 2023-09-07 15:13 | OPERATIVE REPORT ---
DATE OF SERVICE: 09/07/2023 PREOPERATIVE DIAGNOSIS: Left knee primary osteoarthritis. POSTOPERATIVE DIAGNOSIS: Left knee primary osteoarthritis. PROCEDURE: Left total knee arthroplasty. SURGEON: Edgardo Varela MD LICENSED PSYCHOLOGIST MANAGER: Cristhian Reynolds, who assisted throughout the procedure and closed the incision. ANESTHESIA: General endotracheal by Harman Swain CRNA. TOURNIQUET TIME: Approximately 70 minutes at 300 mmHg. ESTIMATED BLOOD LOSS: Minimal. DRAINS: None. COMPLICATIONS: None. POSTOPERATIVE PLAN: Routine protocol. The patient was transferred to the recovery room awake and stable condition. MATERIALS: MicroPort cemented size 6 femur, cemented size 6 tibia with 10 mm insert and cemented size 29 patellar button. STATEMENT OF MEDICAL NECESSITY: The patient is a 72-year-old gentleman with longstanding progressive knee pain. Radiographs revealed severe tricompartmental osteoarthritis. He has undergone treatment with injections, anti-inflammatories and rest without relief. Due to functional impairment and failure to improve with conservative measures, the patient elected to proceed with surgical intervention. DESCRIPTION OF PROCEDURE: After risks and benefits of the procedure were discussed and questions were answered and informed consent was signed and placed on the chart, the operative site was confirmed in the preoperative holding area initialed by the surgeon. The patient was then transported to the operating room. After adequate levels of general endotracheal anesthetic were obtained, timeout was called, confirming the operative site. The left lower extremity was prepped and draped in the usual sterile fashion with the leg elevated, tourniquet inflated to 300 mmHg. Standard anterior approach was utilized. Hemostasis was obtained with cautery. Medial parapatellar arthrotomy was performed, leaving 1 cm cuff on the patella for later reattachment. Portion of the fat pad was resected. A subperiosteal release was carefully performed on the proximal medial tibia, being careful to stay on the bony surface. The ACL was resected. Intramedullary guide was passed into the femoral canal. The distal cutting block was placed and distal cut was made. The femur sized to a size 6. A 6 cutting block was placed parallel to the epicondylar axis and cuts were made from posterior to anterior. Subperiosteal release was then carefully performed on the posterior distal femur, being careful to stay on the bony surface. Intramedullary guide was then passed into the tibia. The drop yaakov was placed from the cutting block. This was felt to be in excellent position. Cut was made. The size 6 baseplate was placed. Drop yaakov transected the intermalleolar axis and this was prepared with the drill and keel punch. The femoral trial was placed and trochlear cut was made. A 10 mm insert was placed. The patella was then prepared by resecting 10 mm off the undersurface. The peg guide was placed and peg holes were drilled. A 29 trial was placed. The knee was taken through range of motion. Full extension was easily obtained, 120 degrees of flexion with gravity was easily obtained. There was no anterior/posterior or medial/lateral laxity in flexion or extension. The patella tracked well. The trials were removed. The joint was irrigated with pulse lavage. Periarticular block was placed in the posterior capsule, medial and lateral retinaculum extensor mechanism and subcutaneous tissues. The bone ends were irrigated and dried. The tibial baseplate was cemented into position. Excessive cement was removed. Superior surface was irrigated and dried and the polyethylene insert was placed. Distal femur was irrigated and dried. The femoral prosthesis was cemented into position. Excessive cement was removed. The knee was brought out in full extension until cement cured. The patella was irrigated and dried and the patellar button was cemented into position. Excessive cement was removed. The knee was held in full extension until the cement had cured. The joint was irrigated with pulse lavage as well as Irrisept, 450 mL of Irrisept was used throughout the procedure. Once the cement had cured, the knee was taken through range of motion. Full extension was easily obtained, 120 degrees of flexion with gravity was easily obtained. There was no anterior/posterior or medial/lateral laxity in flexion or extension. The patella tracked well. The arthrotomy was closed with #2 Tevdek in figure-of-8 interrupted fashion. Knee was flexed. Repair was stable. Subcutaneous tissues were irrigated with pulse lavage and Irrisept using a total of 6 liters of pulse lavage throughout the procedure. A 0 Vicryl was used for deep subcutaneous layer, 2-0 Vicryl for superficial subcutaneous layer, theresa used on the skin. A soft dressing was applied. The tourniquet was deflated. The patient was transferred to the recovery room awake and in stable condition. Job ID: [id number] DocumentID: [id number] Dictated Date: 09/07/2023 09:21:02 Mothers Helper Date: 09/07/2023 15:11:00 Dictated By: EDGARDO VARELA MD
[2023-09-07] MEDS: CEFUROXIME INJECTION 750 MG in NS (IVPB) 50 ML 50 ML IV SCH (17:31)
[2023-09-07] MEDS: SENNA W/DOCUSATE TABLET PO SCH (19:49)
[2023-09-07] MEDS ORDERED: GABAPENTIN 300 MG CAPSULE PO SCH (21:00)
[2023-09-08] MEDS: CEFUROXIME INJECTION 750 MG in NS (IVPB) 50 ML 50 ML IV SCH (01:32)
[2023-09-08] MEDS: NS IV 1000 ML 1,000 ML IV SCH (03:41)
[2023-09-08 04:31] VITALS: BP 120/66
[2023-09-08 05:41] LABS: HEMOGLOBIN 11.9 g/dL (13.3-17.7)
[2023-09-08 07:26] VITALS: BP 104/65
--- NOTE | 2023-09-08 07:49 | Progress Note ---
Standard Progress Note Progress Notes/Assess & Plan Date Seen by a Provider: Sep 08, 2023 Time Seen by a Provider: 07:39 Progress/Assessment & Plan no complaints rdiographs--HW well positioned without fracture LLE--intact DF and PF of toes and ankle 2 plus DP pulse with brisk cap refill sensation intact to light touch throughout s/p LTKA mobilize as able Final Diagnosis no complaints Vital Signs Date Time Temp Pulse Resp B/P (MAP) Pulse Ox O2 Delivery O2 Flow Rate FiO2 09/08/23 04:31 36.2 70 18 120/66 (84) 94 Room Air 0.00 0.00 09/07/23 23:16 36.0 73 18 114/74 (87) 97 Room Air 0.00 0.00 09/07/23 21:35 Room Air 09/07/23 19:47 36.6 82 18 110/75 (87) 97 Room Air 09/07/23 16:31 36.4 81 16 108/62 (77) 96 Room Air 09/07/23 11:15 36.2 84 16 119/80 (93) 92 Nasal Cannula 2.00 09/07/23 10:35 Nasal Cannula 2.00 09/07/23 10:30 Nasal Cannula 2.00 09/07/23 10:30 36.2 20 147/90 (109) 98 Nasal Cannula 2.00 09/07/23 10:20 20 159/90 (113) 99 Nasal Cannula 2.00 09/07/23 10:15 Nasal Cannula 2.00 09/07/23 10:10 20 158/92 (114) 99 Nasal Cannula 2.00 09/07/23 10:00 20 160/94 (116) 99 OxyMask 3.00 09/07/23 10:00 OxyMask 3.00 09/07/23 09:50 20 163/96 (118) 99 OxyMask 3.00 09/07/23 09:45 OxyMask 3.00 09/07/23 09:40 20 168/101 (123) 99 OxyMask 3.00 09/07/23 09:30 20 162/94 (116) 100 OxyMask 6.00 09/07/23 09:30 OxyMask 6.00 09/07/23 09:20 16 157/97 (117) 100 OxyMask 6.00 09/07/23 09:20 OxyMask 6.00 09/07/23 09:17 OxyMask 6.00 09/07/23 09:17 36.2 16 157/97 (117) 100 OxyMask 6.00 I & O 09/08/23 07:00 Intake Total 1715 ml Output Total 400 ml Balance 1315 ml Laboratory Tests Test 09/08/23 05:10 Range/Units Hemoglobin 11.9 L 13.3-17.7 g/dL Hematocrit 35 L 40-54 % LLE-- NVI distally no calf tenderness neg Loni's able to perform SLR s/p LTKA doing well DC home after PT REY VARELA MD Sep 08, 2023 07:49
[2023-09-08] MEDS ORDERED: ENOXAPARIN 30 MG/0.3 ML SYRINGE SC SCH (08:00)
[2023-09-08] MEDS: SENNA W/DOCUSATE TABLET PO SCH (08:50)
--- NOTE | 2023-09-08 08:54 | Physical Therapy Daily Note ---
PT Daily Note-Current Subjective Patient agrees to PT. Pain Numeric Pain Scale: 5-Moderate Pain Location: Left Location Body Site: Knee Pain Description: Acute Section J - Health Conditions 1. Rarely or not at all 2. Occasionally 3. Frequently 4. Almost constantly 8. Unable to answer Pain Effect on Sleep: 1 Pain Interference with Therapy: 1 Pain Interference w/Day-to-Day: 1 Transfers SCALE: Activities may be completed with or without assistive devices. 1-Rmnyksysim-khqwkhx completes the activity by him/herself with no assistance from a helper. 5-Set-up or Clean-up Assistance-helper sets up or cleans up; patient completes activity. [place] assists only prior to or following the activity. 4-Supervision or Touching Assistance-helper provides verbal cues and/or touching/steadying and/or contact guard assistance as patient completes activity. Assistance may be provided throughout the activity or intermittently. 3-Partial/Moderate Assistance-helper does LESS THAN HALF the effort. [place] lifts, holds or supports trunk or limbs, but provides less than half the effort. 2-Substantial/Maximal Assistance-helper does MORE THAN HALF the effort. [place] lifts or holds trunk or limbs and provides more than half the effort. 1-Wdryvonem-pwrxri does ALL the effort. Patient does none of the effort to complete the activity. Or, the assistance of 2 or more helpers is required for the patient to complete the activity. If activity was not attempted, code reason: 7-Patient Refused. 9-Not Applicable-not attempted and the patient did not perform the activity before the current illness, exacerbation or injury. 10-Not Attempted due to Environmental Limitations-(lack of equipment, weather restraints, etc.). 88-Not Attempted due to Medical Conditions or Safety Concerns. Sit to Lying (QC): 6 Lying to Sitting/Side of Bed(Q: 6 Sit to Stand (QC): 6 Chair/Ktt-wb-Nauvj Xfer(QC): 6 Weight Bearing Right Lower Extremity: Right Full Weight Bearing Left Lower Extremity: Left Weight Bearing/Tolerated Gait Training Distance: 275' Walk 10 feet (QC): 6 Walk 50 ft with 2 Turns(QC): 6 Walk 150 ft (QC): 6 Gait Assistive Device: FWW steady, reciprocal pattern/antalgic Exercises Supine Ex: Ankle pumps, Quad Set, Heel Slides, Straight leg raise Supine Reps: 15 Seated Therapy Exercises: Long arc quads Seated Reps: 15 Assessment Patient's AROM left knee flexion 90 degrees in seated position. Patient instructed to preform HEP issued at preop, 3/day. Patient voices understanding. Patient to dismiss to home on this date. PT Package Maker Goals Package Maker Goals PT Package Maker Goals Time Frame: Sep 15, 2023 Roll Left & Right (QC): 6 Sit to Lying (QC): 6 Lying-Sitting on Side/Bed(QC): 6 Sit to Stand (QC): 6 Chair/Zut-oq-Cxyar Xfer(QC): 6 Toilet Transfer (QC): 6 Does the Patient Walk: Yes Walk 10 feet (QC): 6 Walk 50ft with 2 Turns (QC): 6 Walk 150 ft (QC): 6 1 Step (curb) (QC): 4 PT Plan Treatment/Plan Treatment Plan: Discontinue PT Treatment Plan: Bed Mobility, Education, Functional Activity Sera, Functional Strength, Group Therapy, Gait, Safety, Therapeutic Exercise, Transfers Treatment Duration: Oct 15, 2023 Frequency: 11 times per week Estimated Hrs Per Day: .25 hour per day Patient and/or Family Agrees t: Yes Time Time In: 735 Time Out: 800 DATE: Sep 08, 2023 Total Billed Treatment Time: 25 Total Billed Treatment 1 visit EX 15 min GT 10 min ROCHELLE LACY PT Sep 08, 2023 08:54
[2023-09-08] MEDS ORDERED: ASPIRIN enteric coated 81MG TABLET PO SCH (09:00)
[2023-09-08] MEDS ORDERED: CELECOXIB 400 MG CAPSULE PO SCH (09:00)
[2023-09-08] MEDS ORDERED: FLU HIGH DOSE (65+ YOA) 240 MCG/0.7 ML 2023-24 (FLUZONE) IM ONE (09:30)
[2023-09-08] MEDS: oxyCODONE/ACETAMINOPHEN 5/325MG TABLET PO PRN (10:20)
[2023-09-08 10:37] VITALS: BP 104/65
--- NOTE | 2023-09-09 12:56 | Anesthesia-General Post-Op ---
General Post Op Complications Complications None Follow Up Care/Instructions Patient Instructions None needed. Anesthesia/Patient Condition Patient Condition Patient Discharged. Chart reviewed with no apparent adverse anesthesia problems noted. ANABELL LEONARD CRNA Sep 09, 2023 12:56
== END 2023-09-08 10:38 | disposition home or self-care (01) | DRG 470 ==
LOC: 4TH 05:52 → SURG 05:53 → 4TH 10:32
PROVIDERS: ADMIT Orthopaedic Surgery; ATTEND Orthopaedic Surgery
PROC: 0SRD0J9 Replacement of Left Knee Joint with Synthetic Substitute, Cemented, Open Approach (ICD-10-PCS; principal; 2023-09-07 07:27)
DX: M17.12 Unilateral primary osteoarthritis, left knee (principal); I10 Essential (primary) hypertension; F17.200 Nicotine dependence, unspecified, uncomplicated; E78.00 Pure hypercholesterolemia, unspecified
CPT/HCPCS: 36415; 73560; 85014; 85018; 86850; 86900; 86901; 90662

== ENCOUNTER 2023-09-19 10:54 | Emergency (ER) | payer MEDICARE ==
[~2023-09-19] VITALS: Ht 170 cm; Wt 70.0 kg
[2023-09-19 11:50] VITALS: BP 147/86
== END 2023-09-19 11:51 | disposition left against medical advice (07) ==
LOC: EDUNIT# 10:54 → ER 10:57
DX: M79.672 Pain in left foot (principal)
CPT/HCPCS: 99281